=== PATIENT | male | born 1990 | race Caucasian/White ===

== ENCOUNTER 2022-09-07 12:40 | Emergency (ER) | payer MEDICAID, OTHER ==
[2022-09-07] MEDS ORDERED: Ketorolac 30 MG/ML SDV IM ONE (14:05)
== END 2022-09-07 15:09 | disposition home or self-care (01) ==
LOC: JP.ED 12:40
DX: S40.022A Contusion of left upper arm, initial encounter (principal); F17.200 Nicotine dependence, unspecified, uncomplicated; Z88.0 Allergy status to penicillin; W10.9XXA Fall (on) (from) unspecified stairs and steps, initial encounter
CPT/HCPCS: 73090; 96372; 99283; J1885; 99281

== ENCOUNTER 2022-09-20 13:43 | Inpatient (IN) | payer MEDICAID, OTHER ==
[2022-09-20] MEDS ORDERED: Sodium Chloride 0.9% 10 ML Syringe FLUSH PRN (14:48)
[2022-09-20 14:50] LABS: CORONAVIRUS COVID-19 NAA NEGATIVE (NEGATIVE)
[2022-09-20] MEDS ORDERED: MVI, Adult with Vitamin K 10 ML, Thiamine 200 MG, Folic Acid 1 MG, Magnesium Sulfate 2 ... IV ONE ×5 (14:50)
[2022-09-20] MEDS ORDERED: LORazepam 2 MG/ML SDV IM ONE (14:50)
[2022-09-20] MEDS ORDERED: LORazepam 2 MG/ML SDV IVPUSH ONE (14:55)
[2022-09-20 15:08] LABS: ESTIMATED GFR 122 mL/min (>60)
[2022-09-20] MEDS ORDERED: Nicotine 14 MG/24 Hr Patch TRDERM ONE (15:37)
[2022-09-20] MEDS: Gabapentin 400 MG Cap PO SCH ×2 (16:27→21:09)
[2022-09-20] MEDS ORDERED: Ondansetron 4 MG/2 ML SDV IV PRN (16:46)
[2022-09-20] MEDS ORDERED: Magnesium Hydroxide 400 MG/5 ML Susp 30 ML Cup PO PRN (16:46)
[2022-09-20] MEDS ORDERED: Acetaminophen 325 MG Tab PO PRN (16:46)
[2022-09-20] MEDS ORDERED: Ondansetron 4 MG Tab.DIS PO PRN (16:46)
[2022-09-20] MEDS ORDERED: QUEtiapine 100 MG Tab PO PRN (16:46)
[2022-09-20] MEDS ORDERED: Potassium Chloride 20 MEQ Tab.ER PO ONE (16:46)
[2022-09-20] MEDS ORDERED: Nicotine 14 MG/24 Hr Patch TRDERM PRN (16:46)
[2022-09-20] MEDS: cloNIDine 0.1 MG Tab PO SCH ×2 (17:35→21:09)
[2022-09-20] MEDS: LORazepam 1 MG Tab PO SCH ×4 (17:36→23:34)
[2022-09-20] MEDS: Sodium Chloride 0.9% 1,000 ML IV SCH (17:38)
[2022-09-20] MEDS: oxyCODONE 5 MG Tab PO PRN (18:38)
[2022-09-20] MEDS ORDERED: Gabapentin 300 MG Cap PO SCH (21:00)
[2022-09-20] MEDS: Melatonin 3 MG Tab PO SCH (21:09)
[2022-09-21] MEDS: LORazepam 1 MG Tab PO SCH ×4 (01:51→08:16)
[2022-09-21] MEDS: Sodium Chloride 0.9% 1,000 ML IV SCH (01:52)
[2022-09-21] MEDS: oxyCODONE 5 MG Tab PO PRN (03:55)
[2022-09-21 04:59] LABS: ESTIMATED GFR 127 mL/min (>60)
[2022-09-21] MEDS ORDERED: Potassium Chloride 20 MEQ in Premix Bag 1 BAG IV ONE (05:10)
[2022-09-21] MEDS ORDERED: Potassium Chloride 20 MEQ Tab.ER PO ONE (05:10)
[2022-09-21] MEDS: cloNIDine 0.1 MG Tab PO SCH ×4 (05:34→21:50)
[2022-09-21] MEDS: Escitalopram 10 MG Tab PO SCH (08:13)
[2022-09-21] MEDS: Folic Acid 1 MG Tab PO SCH (08:13)
[2022-09-21] MEDS: Pantoprazole 40 MG Tab.CR PO SCH (08:13)
[2022-09-21] MEDS: Thiamine 100 MG Tab PO SCH (08:14)
[2022-09-21] MEDS: Gabapentin 400 MG Cap PO SCH ×3 (08:16→21:50)
[2022-09-21] MEDS: LORazepam 2 MG/ML SDV IV SCH ×3 (09:41→21:50)
[2022-09-21] MEDS: Haloperidol Lactate 5 MG/ML SDV IVPUSH PRN ×3 (10:43→23:40)
[2022-09-21] MEDS: Potassium Chloride 10 MEQ in Premix Bag 1 BAG IV SCH ×4 (15:43→19:24)
[2022-09-21] MEDS: Melatonin 3 MG Tab PO SCH (21:50)
[2022-09-21] MEDS: Nicotine 21 MG/24 Hr Patch TRDERM SCH (23:40)
[2022-09-22] MEDS: LORazepam 2 MG/ML SDV IV SCH (04:42)
[2022-09-22] MEDS: cloNIDine 0.1 MG Tab PO SCH ×4 (05:45→21:34)
[2022-09-22 06:14] LABS: ESTIMATED GFR 133 mL/min (>60)
[2022-09-22] MEDS: Pantoprazole 40 MG Tab.CR PO SCH (08:06)
[2022-09-22] MEDS: Escitalopram 10 MG Tab PO SCH (08:06)
[2022-09-22] MEDS: Folic Acid 1 MG Tab PO SCH (08:06)
[2022-09-22] MEDS: Gabapentin 400 MG Cap PO SCH ×3 (08:06→21:34)
[2022-09-22] MEDS: Thiamine 100 MG Tab PO SCH (08:06)
[2022-09-22] MEDS: Nicotine 21 MG/24 Hr Patch TRDERM SCH (08:09)
[2022-09-22] MEDS ORDERED: Potassium Chloride 20 MEQ Tab.ER PO ONE (08:30)
[2022-09-22] MEDS: Nicotine Polacrilex 2 MG Gum CHEW PRN ×3 (11:44→20:46)
[2022-09-22] MEDS: Melatonin 3 MG Tab PO SCH (21:34)
[2022-09-23] MEDS: cloNIDine 0.1 MG Tab PO SCH ×2 (05:34→10:03)
[2022-09-23 06:23] LABS: ESTIMATED GFR 127 mL/min (>60)
[2022-09-23] MEDS: Pantoprazole 40 MG Tab.CR PO SCH (08:02)
[2022-09-23] MEDS: Gabapentin 400 MG Cap PO SCH ×2 (08:03→14:32)
[2022-09-23] MEDS: Escitalopram 10 MG Tab PO SCH (08:03)
[2022-09-23] MEDS: Thiamine 100 MG Tab PO SCH (08:03)
[2022-09-23] MEDS: Nicotine 21 MG/24 Hr Patch TRDERM SCH (08:04)
[2022-09-23] MEDS: Folic Acid 1 MG Tab PO SCH (08:04)
[2022-09-23] MEDS ORDERED: Potassium Chloride 20 MEQ Tab.ER PO ONE (09:30)
== END 2022-09-23 14:35 | disposition home or self-care (01) | DRG 897 ==
LOC: JP.ED 13:43 → JP.ICU 15:39
PROVIDERS: ADMIT Internal Medicine; ATTEND Internal Medicine
DX: F10.951 Alcohol use, unspecified with alcohol-induced psychotic disorder with hallucinations (principal); F10.931 Alcohol use, unspecified with withdrawal delirium; K70.10 Alcoholic hepatitis without ascites; E87.6 Hypokalemia; F17.200 Nicotine dependence, unspecified, uncomplicated; F41.9 Anxiety disorder, unspecified; F32.A Depression, unspecified; F43.12 Post-traumatic stress disorder, chronic; F17.210 Nicotine dependence, cigarettes, uncomplicated; Z86.16 Personal history of COVID-19; Z79.899 Other long term (current) drug therapy; Z88.0 Allergy status to penicillin
CPT/HCPCS: 0241U; 36415; 80053; 80305-QW; 80307; 83735; 84132; 85025; 96365; 96375; 99222; 99232; 99233; 99238; 99284; 99284-25; A9270-GY; J1630; J2060; J3411; J3475; J3480; J3490; J7030; J7121